=== PATIENT | male | born 1985 | race Caucasian/White ===

== ENCOUNTER 2024-07-09 09:39 | Outpatient (AMB) | payer OTHER, SELFPAY ==
[2024-07-09 10:01] VITALS: BP 130/80; PULSE 72; RESP 15; TEMP 36.7; O2SAT 99; BMI 27.8
--- NOTE | 2024-07-09 10:01 | AM.OFFWIN_ITS ---
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 HPI Details Patient presents with confluence of hives on arms and torso after starting a Medrol Dosepak. Patient had seen urgent care for an ear infection about 1 month ago. He was given an antibiotic which did not help. He was seen again for irritation in the ear canal as well as a 3 cm rash on his peters. He was given a Medrol Dosepak a week ago and told that this would help with both problems. Patient has now developed hives on back and arms Review of Systems Const Denies chills, Denies fatigue, Denies fever(s), Denies headache(s) and Denies weakness ENT Denies dizziness and Denies headache(s) Card Denies dyspnea Resp Denies cough, Denies dyspnea, Denies wheezing and Denies other ( shortness of breath) Musc Denies numbness and Denies tingling Skin/Breast Details: See HPI Neuro Denies dizziness, Denies headache(s), Denies numbness, Denies tingling, Denies paresthesias and Denies weakness Psych Denies anxiety and Denies depression Endo Denies fatigue Aller/Immun Denies wheezing Physical Exam Vital Signs: Last Vital Signs Temp 98.0 F 07/09/24 10:01 Pulse 72 07/09/24 10:01 Resp 15 07/09/24 10:01 BP 130/80 07/09/24 10:01 Pulse Ox 99 07/09/24 10:01 Oxygen Delivery Method Room Air 07/09/24 10:01 BMI result Body Mass Index 27.8 Const General: no acute distress and well developed Nutritional Appearance: well nourished Orientation/consciousness: patient oriented x3 HEENT Head: Yes normocephalic and Yes atraumatic Eyes General: appearance normal, both eyes and all related structures Pupils: Equal, round and reactive pupils present EOM: EOMs intact bilaterally Resp Effort & Inspection: normal respiratory effort Skin Other: Hives like rash on arms and torso Dermatitis rash, 3 cm in diameter on his peters which appears secondarily infected in follicular pattern. Neuro General: patient oriented x3 and gait normal Cranial nerves: Yes Equal, round and reactive pupils present Psych Affect: normal affect Assessment & Plan Assessment & Plan (1) Hives: Code(s): L50.9 - Urticaria, unspecified (2) Allergy: Code(s): T78.40XA - Allergy, unspecified, initial encounter (3) Dermatitis: Code(s): L30.9 - Dermatitis, unspecified Plan [place] of hives on torso associated with Medrol Dosepak. Too far out to be related to antibiotics a month ago. Likely a histamine mediated allergic reaction so should use Benadryl 50 mg q.6 to 8 hours until resolved/resolving. Has discontinued Medrol Dosepak. Cool showers and loose fitting clothing. Dermatitis on leg which appears secondarily infected. He can use triamcinolone topically on this morning and night He will use mupirocin twice during the day for secondary infection. Call or return to office if not improving. Go to the ED if any difficulty with breathing or swallowing. Medications: New diphenhydramine HCl (Allergy (diphenhydramine)) 50 mg (2 x 25 mg) PO Q6-8H 7 days PRN 56 tabs 0RF allergic reaction triamcinolone acetonide 0.1% 1 appl topical BID 10 days 15 grams 0RF mupirocin 2% 1 appl topical BID 10 days 15 grams 0RF Coding Level of Care Code New Pt Level 3 (77296) Diagnoses Hives L50.9 Allergy T78.40XA Dermatitis L30.9
== END 2024-07-09 11:47 | disposition home or self-care (01) ==
LOC: HO.HMCWIC 09:39
PROVIDERS: Visit Provider Family Medicine
DX: L50.9 Urticaria, unspecified (principal); T78.40XA Allergy, unspecified, initial encounter; L30.9 Dermatitis, unspecified

== ENCOUNTER → 2024-07-09 09:39 | Outpatient (BNVA) | payer OTHER, SELFPAY | PROVIDERS: Visit Provider Family Medicine | DX: Z13.89 Encounter for screening for other disorder (principal) ==

== ENCOUNTER 2024-07-16 09:11 | Outpatient (AMB) | payer OTHER, SELFPAY ==
[2024-07-16 11:40] VITALS: BP 130/80; PULSE 77; O2SAT 97; BMI 27.8
--- NOTE | 2024-07-16 11:40 | MHC.OFFWIV ---
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 Apparently he had an ear infection about 3 weeks ago, for which he was prescribed an antibiotic. He completed this, but continued to have irritation like symptoms in the ear, and had developed a lesion to 1 of his shins. At that point, he was prescribed a Medrol Dosepak, but soon after developed apparent hives to the upper torso and bilateral legs. He was seen at the walk-in and was prescribed Benadryl and triamcinolone ointment for hives/dermatitis, and mupirocin for some lesions that had looked secondarily infected. He reports that he is taking the Benadryl, but he did not use the triamcinolone ointment. The rash has cleared to the upper torso area, but has continued to persist and be thickened to the legs, and now especially to the upper extremities, and as well as extremely itchy, especially at night. Prior to this, he denies having any allergies. There has been no change in product use or exposures per patient and his family member. He denies trouble swallowing, sore throat, swelling to the tongue or lips or face, trouble breathing, shortness of breath, chest pain, dizziness or weakness, pain, swollen joints, fatigue, myalgias or malaise, or other significant associated symptoms. HPI Comments History of Present Illness Details Patient is a 38-year-old male who comes to the walk-in clinic complaining of a rash Review of Systems Const All systems reviewed & are unremarkable except as noted in HPI and below Physical Exam Vital Signs: Last Vital Signs Pulse 77 07/16/24 11:40 BP 130/80 07/16/24 11:40 Pulse Ox 97 07/16/24 11:40 Oxygen Delivery Method Room Air 07/16/24 11:40 BMI result Body Mass Index 27.8 Const General: cooperative, healthy appearing, comfortable, no acute distress, alert, awake, Physically active and well groomed; No anxious, diaphoretic, ill appearing, intoxicated appearing, poor hygiene or tired appearing Nutritional Appearance: average body habitus Orientation/consciousness: oriented to person Limitations: no limitations HEENT General nose exam: Normal external nose present, Normal nares present, No nasal polyps present, Normal nasal mucous membranes and turbinates present, Normal septum present and No nasal discharge present Face and sinus: Yes normal facial exam, Yes sinuses nontender and Yes face symmetric Mouth: Normal oral and palatal mucosa present, lip normal and tongue normal Throat: Yes posterior oropharynx normal, No peritonsillar mass, No postnasal drainage, No uvular edema and No cobblestoning Eyes General: appearance normal, both eyes and all related structures Neck Neck: Yes normal visual inspection, Yes no lymphadenopathy, Yes trachea midline, Yes supple and No anterior neck swelling Chest Chest palpation & inspection: normal palpation of entire chest wall Resp Effort & Inspection: normal respiratory effort, able to speak in complete sentences, normal respiratory pattern, no audible wheezes, no cough, respiratory effort not decreased, no grunting, not labored, no nasal flaring, no retractions, no stridor, not tachypneic, no tripod positioning, no use of accessory muscles and symmetric chest movement Auscultation: clear to auscultation bilaterally, no crackles, no rales, no rhonchi, no wheezes, lung sounds not diminished and No rub present Cardio Palpation: normal PMI Rate: regular rate Rhythm: regular rhythm Heart sounds: S1 normal heart sound present and S2 normal heart sound present Skin Other: Bilateral upper extremities and bilateral flanks and lower back are covered in erythematous confluence papules. No warmth or edema or other cellulitic features. There is no pattern to the rash that would seem like this is scabies infestation. He no longer has a visible hives to the chest area Neuro General: oriented to person Psych Appearance: grossly normal Mental Status: mental status grossly normal Speech and movement: Normal speech and movement present Affect: normal affect Attitude: cooperative Thought process: Normal thought process present Insight: Good insight present (Psych) Judgement: Good judgement present (Psych) Assessment & Plan Assessment & Plan (1) Dermatitis: Code(s): L30.9 - Dermatitis, unspecified Plan Apparent dermatitis, unknown etiology of the source. Patient had not started the triamcinolone that was prescribed for him at prior visit, so I advised that he trial this for a few days, before considering taking an oral prednisone, as it is listed as an allergy for him- however this was due to the rash worsening despite completing a Medrol Dosepak. I think that he is possibly having an immune mediated response from coming off the Medrol Dosepak, and as it has spread from bilateral upper extremities to his torso now, and he might end up require a prednisone taper due to the extent of spread. Therefore I did write him for this, if the rash does not improve with the topical triamcinolone. He also can take Vistaril at night as needed for the itching, and cetirizine during the day (which he does have at home but not been taking recently). I put through a referral to Dermatology for him also, as it seems appropriate at this point. I also described anaphylactic symptoms for him, so he can monitor in case anything worsens, and go to emergency department as needed in the meantime. Orders: Referrals Dermatology Referral L30.9 - Dermatitis, unspecified Medications: New prednisone then take 3 tabs for 3 days, then 2 tabs for 3 days, then 1 tab for 3 days. 40 mg (4 x 10 mg) PO DAILY 30 tabs 0RF 3 days hydroxyzine pamoate Can take a 2nd capsule at bedtime if needed, note this medication is very sedating- do not drive or do safety sensitive tasks while taking 25 mg PO BEDTIME PRN 20 caps 0RF pruritis Coding Level of Care Code Est Pt Level 4 (50688) Diagnoses Dermatitis L30.9
== END 2024-07-16 12:41 | disposition home or self-care (01) ==
PROVIDERS: Visit Provider Physician Assistant Medical
DX: L30.9 Dermatitis, unspecified (principal)

== ENCOUNTER → 2024-07-16 09:11 | Outpatient (BNVA) | payer OTHER, SELFPAY | PROVIDERS: Visit Provider Physician Assistant Medical ==

== ENCOUNTER 2024-10-14 09:31 | Outpatient (AMB) | payer OTHER, SELFPAY ==
--- NOTE | 2024-10-14 10:15 | MHC.PC.OV ---
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 ?? Prior PCP:? [facility] Last office visit/CPE:? > 3 yrs Acute issue(s):? Est Care ?? PMHx:? Denies SurgHx:? None FHx:? Mom: Healthy. Dad: CAD & CA age 68, PAD. SocHx:? Nonsmoker. EtoH 2 beers a week. No drugs PFSH Social History Housing: House Patient Tobacco Use Status: Never used Tobacco e-Cigarette/Vaping Use: Never Used Second Hand Smoke Exposure: No service: No Current occupational status: employed Current occupation: [employer] Current occupational exposures/hazards: Yes Cognitive needs: No Hearing needs: No Vision needs: No Questionnaire PHQ-9 Over the last 2 weeks, how often have you been bothered by any of the following problems? 1. Little interest or pleasure in doing things: not at all 2. Feeling down, depressed, or hopeless: not at all 3. Trouble falling or staying asleep, or sleeping too much: not at all 4. Feeling tired or having little energy: not at all 5. Poor appetite or overeating: not at all 6. Feeling bad about yourself - or that you are a failure or have let yourself or your family down: not at all 7. Trouble concentrating on things, such as reading the newspaper or watching television: not at all 8. Moving or speaking so slowly that other people could have noticed. Or the opposite - being so fidgety or restless that you have been moving around a lot more than usual: not at all 9. Thoughts that you would be better off or of hurting yourself in some way: not at all Total score: 0 Depression Screening Interpretation: Negative Depression Screening Done: Yes 30303 - PHQ-9 Billing: Yes Source: Developed by Drs. Skinny Haynes, Barbara Beckford, Duy Villarreal and colleagues, with an educational charles from [employer]. Thrive Questionnaire Date Thrive assessed: 10/14/24 I am a: Patient What is your living situation today?: I have a steady place to live Within the past 12 months, did the food you bought not last and you didn't have the money to get more?: Never true Within the past 12 months, did you worry whether your food would run out before you got money to buy more?: Never true Do you have trouble paying for medicines?: No Do you have trouble getting transportation to medical appointments?: No Do you have trouble paying your heating and electricity bill?: No Do you have trouble taking care of your child, family member or friend?: No Do you have trouble with day-to-day activities such as bathing, preparing meals, shopping, managing finances, etc.?: No Are you currently unemployed and looking for a job?: No Are you interested in more education?: No Please select the resources that you would like help with: None Currently or been in a relationship where the following occur: No concerns reported THRIVE Score: 0 AUDIT C Alcohol Use Questionnaire (AUDIT-C) 1. How often do you have a drink containing alcohol?: 2-4 times a month 2. How many drinks containing alcohol do you have on a typical day when you are drinking?: 3 or 4 3. How often do you have six or more drinks on one occasion?: Less than monthly Total Score: 4 Score Reviewed/Action Taken: Yes DENNY-7 AMB Questionnaire DENNY-7 Date DENNY - 7 assessed: 10/14/24 Feeling nervous, anxious, or on edge: 0 = Not at all Not being able to stop or control worryin = Not at all Worrying too much about different things: 0 = Not at all Trouble relaxin = Not at all Being so restless that it is hard to sit still: 0 = Not at all Becoming easily annoyed or irritable: 0 = Not at all Feeling afraid as if something awful might happen: 0 = Not at all Total DENNY-7 score (0-4 normal; 5-9 mild; 10-14 moderate; 15-21 severe): 0 Source: Developed by Drs. Skinny Haynes, Barbara Beckford, Duy Villarreal and colleagues, with an educational charles from [employer]. DENNY-7 Assessment Billing DENNY-7 Assessment Tool: DENNY-7 Assessment 63089 Review of Systems Const Denies chills, Denies fatigue, Denies fever(s), Denies headache(s) and Denies weakness Eyes Denies change in vision ENT Denies dizziness, Denies headache(s), Denies hearing loss, Denies nasal congestion, Denies sinus pain, Denies sinus pressure and Denies sore throat Card Denies chest pain, Denies lightheadedness, Denies dyspnea and Denies other (palpitations) Resp Denies cough, Denies dyspnea and Denies wheezing GI Denies abdominal pain, Denies melena, Denies hematochezia, Denies change in bowel habits, Denies dyspepsia and Denies nausea Denies hematuria and Denies dysuria Musc Denies abnormal gait, Denies myalgias, Denies arthralgias, Denies numbness and Denies tingling Skin/Breast Denies rash, Denies unusual bruising and Denies wounds Neuro Denies abnormal gait, Denies dizziness, Denies headache(s), Denies memory loss, Denies numbness, Denies Sensory deficit (Neuro), Denies tingling and Denies weakness Psych Denies anxiety, Denies depression and Denies memory loss Endo Denies cold intolerance, Denies fatigue, Denies heat intolerance, Denies polydipsia and Denies polyuria Ken/Lymph Denies easy bleeding and Denies easy bruising Aller/Immun Denies wheezing Physical exam (Primary Care) Vital Signs: Last Vital Signs Temp 98.1 F 10/14/24 10:21 Pulse 70 10/14/24 10:21 Resp 14 10/14/24 10:21 BP 124/70 10/14/24 10:21 Pulse Ox 99 10/14/24 10:21 Oxygen Delivery Method Room Air 10/14/24 10:21 BMI result Body Mass Index 28.4 Tobacco/Smoking Status: Tobacco use Status Tobacco use date assessed 10/14/24 10/14/24 10:30 Patient Tobacco Use Status Never used Tobacco 10/14/24 10:30 e-Cigarette/Vaping Use Never Used 10/14/24 10:30 PHQ-9: PHQ-9 Score PHQ-9: Total score 0 10/14/24 10:50 Depression Screening Interpretation: Negative Thrive Assessment: Date of Thrive Assessment Date Thrive assessed 10/14/24 10/14/24 10:30 Currently or been in a relationship where the following occur: No concerns reported Const General: no acute distress, well developed, alert and awake Nutritional Appearance: well nourished Orientation/consciousness: patient oriented x3 HENMT Head: Yes normocephalic and Yes atraumatic Ears: hearing grossly normal bilaterally and TM's normal bilaterally General nose exam: Normal external nose present and Normal nares present Mouth: Normal oral and palatal mucosa present and moist mucous membranes Teeth and gingiva: dentition normal Throat: Yes posterior oropharynx normal Eyes General: appearance normal, both eyes and all related structures Pupils: Equal, round and reactive pupils present and Pupil accommodation reflex normal EOM: EOMs intact bilaterally Neck Neck: Yes normal visual inspection, Yes no lymphadenopathy and Yes trachea midline Thyroid: Thyroid normal Carotids: no bruits Lymphatic: no lymphadenopathy noted Chest Chest palpation & inspection: normal inspection of the chest Resp Effort & Inspection: normal respiratory effort Auscultation: clear to auscultation bilaterally Cardio Rate: regular rate Rhythm: regular rhythm Heart sounds: S1 normal heart sound present, S2 normal heart sound present, no gallops, no murmurs and no rubs Bruits: no abdominal aortic bruits and no carotid bruits GI Palpation (GI): No Abdominal aortic bruit present, Soft to palpation, nontender, No hepatosplenomegaly present and No Rebound tenderness present Auscultation: normal bowel sounds General: Yes no CVA tenderness Back/Spine/Pelvis Back: no CVA tenderness Cervical Spine: cervical ROM normal and No Cervical spine tenderness Thoracic/Lumbar Spine: thoraco-lumbar ROM normal, No pain with thoraco-lumbar ROM, No thoracic spinal tenderness and No lumbar spinal tenderness Skin Lesions: no lesions Rashes: no rashes Trauma: no lacerations or abrasions Wounds: no wounds Nails: normal Neuro General: patient oriented x3 Cranial nerves: Yes Equal, round and reactive pupils present Cognition (Neuro): normal cognition Gait exam (Neuro): Normal gait present Motor exam (neuro): 5/5 motor strength present throughout Sensory Exam: No Sensory deficit (Neuro) Deep tendon reflexes (DTR's): Right patellar reflex intensity grade: 2+ and Left patellar reflex intensity grade: 2+ Extrem General: Yes normal to inspection and No edema Psych Appearance: grossly normal Affect: normal affect Attitude: cooperative Thought process: Normal thought process present Coding Level of Care Code New Pt Level 3 (19738) New Pt Prev Care 40-64y(71660) Diagnoses Adult general medical exam Z00.00 Screening for prostate cancer Z12.5 Additional Codes DENNY-7 Assessment Billing - DENNY-7 Assessment Tool: DENNY-7 Assessment 06726 ([id number]) PHQ-9 - 04739 - PHQ-9 Billing: Yes ([id number]) Assessment & Plan Assessment & Plan (1) Adult general medical exam: Code(s): Z00.00 - Encounter for general adult medical examination without abnormal findings Category: Medical Plan: 39-year-old male presents as new patient for complete physical exam Exam within normal limits Encouraged healthy diet with active lifestyle and plenty of exercise (2) Screening for prostate cancer: Code(s): Z12.5 - Encounter for screening for malignant neoplasm of prostate Category: Medical Plan: Check PSA Orders: Orders Comprehensive [place]. Panel Fast Today Z00.00 - Encounter for general adult medical examination without abnormal findings Prostate Specific Antigen Scr Today Z12.5 - Encounter for screening for malignant neoplasm of prostate UA CC w/rflx Micro + Cult Today Z00.00 - Encounter for general adult medical examination without abnormal findings Lipid Panel Today Z00.00 - Encounter for general adult medical examination without abnormal findings Microalbumin, Random (w Creat) Today I10 - Essential (primary) hypertension
[2024-10-14 10:21] VITALS: BP 124/70; PULSE 70; RESP 14; TEMP 36.7; O2SAT 99; BMI 28.4
== END 2024-10-14 11:05 | disposition home or self-care (01) ==
LOC: HO.HMCFM 09:32
PROVIDERS: PCP Family Medicine; Visit Provider Family Medicine
DX: Z00.00 Encounter for general adult medical examination without abnormal findings (principal); Z12.5 Encounter for screening for malignant neoplasm of prostate

== ENCOUNTER → 2024-10-14 09:31 | Outpatient (BNVA) | payer OTHER, SELFPAY | PROVIDERS: PCP Family Medicine; Visit Provider Family Medicine | DX: Z00.00 Encounter for general adult medical examination without abnormal findings (principal); Z13.31 Encounter for screening for depression; Z13.39 Encounter for screening examination for other mental health and behavioral disorders | CPT/HCPCS: 96127 ==